=== PATIENT | female | born 1940 | race Caucasian/White ===

== ENCOUNTER 2017-06-26 21:24 | Inpatient (IN) | payer MEDICAID ==
[~2017-06-26] VITALS: Ht 160 cm; Wt 56.0 kg
[2017-06-26 22:16] LABS: BASOPHIL % 0.8 % (0-2); RED CELL DISTRIBUTION WIDTH 13.1 % (11.5-14.5)
[2017-06-26 22:20] LABS: PLATELET COUNT 98 x10^3mcL (130-400)
[2017-06-26 22:40] LABS: CARBON DIOXIDE 22.9 mmol/L (21-32); CHLORIDE SERUM 103 mmol/L (98-107); CREATININE SERUM 0.9 mg/dL (0.6-1.0); GLUCOSE SERUM 224 mg/dL (74-106); POTASSIUM SERUM 3.7 mmol/L (3.5-5.1); SODIUM SERUM 134 mmol/L (136-145)
[2017-06-26 22:47] LABS: ALKALINE PHOSPHATASE 118 U/L (46-116); ALT/SGPT 14 U/L (14-59); AST/SGOT 17 U/L (15-37); BILIRUBIN TOTAL 0.2 mg/dL (0.20-1.00)
[2017-06-27] VITALS (7 sets, daily range): BP systolic 136–188; BP diastolic 48–62
[2017-06-27 00:16] LABS: microscopic required? YES; urine erythrocyte 1+ (NEGATIVE)
[2017-06-27 00:57] LABS: BASOPHIL % 0.3 % (0-2); PLATELET COUNT 254 x10^3mcL (130-400); RED CELL DISTRIBUTION WIDTH 12.7 % (11.5-14.5)
[2017-06-27 01:09] LABS: CALCIUM 8.5 mg/dL (8.5-10.1); CARBON DIOXIDE 27.5 mmol/L (21-32); CHLORIDE SERUM 101 mmol/L (98-107); CREATININE SERUM 0.9 mg/dL (0.6-1.0); GLUCOSE SERUM 271 mg/dL (74-106); SODIUM SERUM 133 mmol/L (136-145)
[2017-06-27 01:32] LABS: MAGNESIUM 1.6 mg/dL (1.8-2.4); PHOSPHOROUS 2.9 mg/dL (2.5-4.9)
[2017-06-27 01:35] LABS: CHOLESTEROL/HDL RATIO 4.8
[2017-06-27 01:42] LABS: FREE T4 1.11 ng/dL (0.76-1.46); FREE THYROXINE INDEX 3.2 ug/dL (1.4-4.5); T4(THYROXINE) 8.9 ug/dL (4.7-13.3)
[2017-06-27 02:41] LABS: T3 TOTAL 1.06 ng/mL
[2017-06-27] MEDS ORDERED: METFORMIN HCL850 MG PO (09:28)
[2017-06-28 05:23] VITALS: BP 126/47
[2017-06-28 06:37] LABS: BASOPHIL % 0.2 % (0-2); PLATELET COUNT 207 x10^3mcL (130-400)
[2017-06-28 06:43] LABS: CALCIUM 7.9 mg/dL (8.5-10.1); CARBON DIOXIDE 26.3 mmol/L (21-32); CHLORIDE SERUM 104 mmol/L (98-107); CREATININE SERUM 1.2 mg/dL (0.6-1.0); GLUCOSE SERUM 182 mg/dL (74-106); MAGNESIUM 2.5 mg/dL (1.8-2.4); SODIUM SERUM 138 mmol/L (136-145)
[2017-06-28 09:08] VITALS: BP 132/42
[2017-06-28 13:23] VITALS: BP 112/36
[2017-06-28 18:00] VITALS: BP 119/38
[2017-06-28 21:21] VITALS: BP 135/47
[2017-06-29 06:05] VITALS: BP 154/54
[2017-06-29 06:22] LABS: BASOPHIL % 0.2 % (0-2); PLATELET COUNT 199 x10^3mcL (130-400); RED CELL DISTRIBUTION WIDTH 13.1 % (11.5-14.5)
[2017-06-29 06:27] VITALS: BP 131/51
[2017-06-29 06:31] LABS: CALCIUM 7.9 mg/dL (8.5-10.1); CARBON DIOXIDE 25.7 mmol/L (21-32); CHLORIDE SERUM 106 mmol/L (98-107); CREATININE SERUM 0.8 mg/dL (0.6-1.0); MAGNESIUM 1.7 mg/dL (1.8-2.4); POTASSIUM SERUM 3.5 mmol/L (3.5-5.1); SODIUM SERUM 138 mmol/L (136-145)
[2017-06-29 06:54] LABS: GLUCOSE SERUM 47 mg/dL (74-106)
[2017-06-29 10:13] VITALS: BP 134/46
[2017-06-29 16:02] VITALS: BP 137/70
[2017-06-29 20:12] VITALS: BP 129/49
[2017-06-30 00:09] VITALS: BP 126/53
[2017-06-30 05:45] LABS: BASOPHIL % 0.2 % (0-2); PLATELET COUNT 205 x10^3mcL (130-400); RED CELL DISTRIBUTION WIDTH 13.3 % (11.5-14.5)
[2017-06-30 06:07] LABS: CALCIUM 7.7 mg/dL (8.5-10.1); CARBON DIOXIDE 24.5 mmol/L (21-32); CHLORIDE SERUM 106 mmol/L (98-107); CREATININE SERUM 0.9 mg/dL (0.6-1.0); GLUCOSE SERUM 175 mg/dL (74-106); MAGNESIUM 2.1 mg/dL (1.8-2.4); PHOSPHOROUS 2.7 mg/dL (2.5-4.9); POTASSIUM SERUM 3.9 mmol/L (3.5-5.1); SODIUM SERUM 138 mmol/L (136-145)
[2017-06-30 08:42] VITALS: BP 140/63
[2017-06-30 11:10] VITALS: BP 132/55
[2017-06-30 12:30] VITALS: BP 144/51
[2017-06-30 17:50] VITALS: BP 136/57
[2017-06-30 23:14] VITALS: BP 144/47
[2017-07-01 07:09] VITALS: BP 154/57
[2017-07-01 07:22] LABS: BASOPHIL % 0.3 % (0-2); PLATELET COUNT 225 x10^3mcL (130-400); RED CELL DISTRIBUTION WIDTH 13.4 % (11.5-14.5)
[2017-07-01 07:25] LABS: CALCIUM 7.8 mg/dL (8.5-10.1); CHLORIDE SERUM 105 mmol/L (98-107); CREATININE SERUM 0.8 mg/dL (0.6-1.0); GLUCOSE SERUM 146 mg/dL (74-106); MAGNESIUM 1.9 mg/dL (1.8-2.4); PHOSPHOROUS 2.6 mg/dL (2.5-4.9); POTASSIUM SERUM 3.9 mmol/L (3.5-5.1); SODIUM SERUM 137 mmol/L (136-145)
[2017-07-01 10:09] VITALS: BP 149/60
[2017-07-01 17:03] VITALS: BP 154/51
[2017-07-01 21:19] VITALS: BP 152/61
[2017-07-02 05:36] VITALS: BP 147/69
[2017-07-02 07:18] LABS: BASOPHIL % 0.3 % (0-2); PLATELET COUNT 233 x10^3mcL (130-400); RED CELL DISTRIBUTION WIDTH 13.4 % (11.5-14.5)
[2017-07-02 07:27] LABS: CALCIUM 7.6 mg/dL (8.5-10.1); CARBON DIOXIDE 23.7 mmol/L (21-32); CHLORIDE SERUM 106 mmol/L (98-107); CREATININE SERUM 0.7 mg/dL (0.6-1.0); GLUCOSE SERUM 129 mg/dL (74-106); MAGNESIUM 1.9 mg/dL (1.8-2.4); PHOSPHOROUS 2.5 mg/dL (2.5-4.9); POTASSIUM SERUM 3.4 mmol/L (3.5-5.1); SODIUM SERUM 139 mmol/L (136-145)
[2017-07-02 10:07] VITALS: BP 145/61
[2017-07-02] MEDS ORDERED: FER300 PO (16:10)
[2017-07-02] MEDS ORDERED: HEP5I SC (16:14)
[2017-07-02] MEDS ORDERED: LOP50 PO (16:15)
[2017-07-02] MEDS ORDERED: LIPI10 PO (16:15)
[2017-07-02] MEDS ORDERED: ZES10 PO (16:16)
[2017-07-02] MEDS ORDERED: APAP/HYDROCODON1 T13 PO (16:16)
[2017-07-02] MEDS ORDERED: COL100 PO (16:17)
[2017-07-02] MEDS ORDERED: GLU5 PO (16:17)
[2017-07-02] MEDS ORDERED: LEVAQUIN750 MG PO (16:19)
[2017-07-02] MEDS ORDERED: CLINDAMYCIN300 M1 PO (16:24)
[2017-07-02] MEDS ORDERED: BD LACTINEX1.4 MG PO (16:37)
[2017-07-02 17:03] VITALS: BP 145/61
== END 2017-07-02 18:41 | DRG 308 ==
LOC: ED 21:24 → DU 22:57 → IC 22:57 → MU 22:57 → DU 23:50 → IC 06-29 15:21 → DU 06-30 10:19 → MU 07-02 10:54
PROVIDERS: Emergency Medicine; Family Medicine; Neuromusculoskeletal Medicine, Sports Medicine; ADMIT Family Medicine
PROC: 0QS604Z Reposition Right Upper Femur with Internal Fixation Device, Open Approach (ICD-10-PCS; principal; 2017-06-29 12:00)
DX: S72.141A Displaced intertrochanteric fracture of right femur, initial encounter for closed fracture (principal); J69.0 Pneumonitis due to inhalation of food and vomit; N17.0 Acute kidney failure with tubular necrosis; E44.0 Moderate protein-calorie malnutrition; D69.6 Thrombocytopenia, unspecified; E11.65 Type 2 diabetes mellitus with hyperglycemia; E11.51 Type 2 diabetes mellitus with diabetic peripheral angiopathy without gangrene; E87.1 Hypo-osmolality and hyponatremia; D63.8 Anemia in other chronic diseases classified elsewhere; E83.42 Hypomagnesemia; I16.0 Hypertensive urgency; E78.5 Hyperlipidemia, unspecified; E03.9 Hypothyroidism, unspecified; Z68.21 Body mass index [BMI] 21.0-21.9, adult; Z87.891 Personal history of nicotine dependence; V48.4XXA Person boarding or alighting a car injured in noncollision transport accident, initial encounter; Y92.9 Unspecified place or not applicable
CPT/HCPCS: 82962; 83880; 84439; 94150; 97110-GP; 97116-GP; 97530-GP; C1713; J0690; J1644; J1815; J1956; J2270; J2405; J2550; J2704; J3010; J3475; J3490; J7030; J7620; Q0092